=== PATIENT | female | born 1950 | race Caucasian/White ===

== ENCOUNTER 2020-05-05 13:19 | Inpatient (IN) ==
[2020-05-05] MEDS ORDERED: Acetaminophen IV 1,000 MG/100 ML INFUS..BTL IVPB ONE (13:21)
[2020-05-05] MEDS ORDERED: Gabapentin 300 MG CAPSULE PO ONE (13:21)
[2020-05-05] MEDS ORDERED: Famotidine 20 MG/2 ML VIAL IVP ONE (13:21)
[2020-05-05] MEDS ORDERED: Lidocaine/EPI 1:100k 1% 20 ML VIAL ONE (13:47)
[2020-05-05] MEDS ORDERED: Lidocaine -MPF 2% 2 ML VIAL ONE (13:57)
[2020-05-05] MEDS ORDERED: Dexamethasone 4 MG/ML VIAL ONE (13:57)
[2020-05-05] MEDS ORDERED: Ondansetron 4 MG/2 ML VIAL ONE (13:57)
[2020-05-05] MEDS ORDERED: *HR* Succinylcholine 200 MG/10 ML VIAL IVP ONE (13:57)
[2020-05-05] MEDS ORDERED: *HR* Rocuronium Bromide 50 MG/5 ML VIAL ONE ×2 (13:57→16:16)
[2020-05-05] MEDS ORDERED: *HR* FentaNYL (PF) 100 MCG/2 ML VIAL ONE (13:58)
[2020-05-05] MEDS ORDERED: *HR* HYDROMORPHONE 2 MG/ML VIAL ONE (13:58)
[2020-05-05] MEDS ORDERED: *HR* HYDROmorphone PF 0.5 MG/0.5 ML SYRINGE IVP PRN (14:05)
[2020-05-05] MEDS ORDERED: Ondansetron 4 MG/2 ML VIAL IVP ONE (14:05)
[2020-05-05] MEDS ORDERED: *HR* OxyCODONE Immed Rel 5 MG TABLET PO PRN (14:05)
[2020-05-05] MEDS ORDERED: Ketorolac 15 MG/ML VIAL IVP ONE (14:05)
[2020-05-05] MEDS ORDERED: *HR* Promethazine 25 MG/ML VIAL IVP PRN (14:05)
[2020-05-05] MEDS ORDERED: *HR* Metoprolol 5 MG/5 ML VIAL IVP PRN (14:05)
[2020-05-05] MEDS ORDERED: Albuterol 2.5 MG/3 ML NEBULIZER IH PRN (14:05)
[2020-05-05 14:17] LABS: Hematocrit 31.3 % (35.3-44.9); Hemoglobin 9.5 g/dL (11.5-15.4)
[2020-05-05] MEDS ORDERED: *HR* EPINEPHrine 30 MG/30 ML MDV ONE (14:17)
[2020-05-05] MEDS ORDERED: CeFAZolin Syr 2,000MG/20 ML 2,000 MG/20 ML SYRINGE IVPB ONE ×2 (14:19→14:42)
[2020-05-05] MEDS ORDERED: Ringers Solution, Lactated 1,000 ML IVC SCH (14:30)
[2020-05-05] MEDS ORDERED: *HR* PHENYLEPHRINE 1,000 MCG/10 ML SYRINGE IVP ONE (15:23)
[2020-05-05] MEDS ORDERED: *HR* Heparin 5,000 UNIT/ML VIAL ONE (15:45)
[2020-05-05] MEDS ORDERED: Ketorolac 30 MG/ML VIAL ONE (15:49)
[2020-05-05] MEDS ORDERED: Loratadine 10 MG TABLET PO PRN (19:53)
[2020-05-05] MEDS ORDERED: 0.9 % Sodium Chloride 1,000 ML IVC SCH (19:53)
[2020-05-05] MEDS ORDERED: Ondansetron 4 MG/2 ML VIAL IVP PRN (19:53)
[2020-05-05] MEDS ORDERED: Naloxone 0.4 MG/ML INJ IVP PRN (19:53)
[2020-05-05] MEDS: Ipratropium/Albuterol Neb 3 ML IH SCH (20:23)
[2020-05-05] MEDS: Famotidine 20 MG TABLET PO SCH (20:40)
[2020-05-05] MEDS: *HR* Heparin 5,000 UNIT/ML VIAL SQ SCH (20:40)
[2020-05-05] MEDS: Gabapentin 300 MG CAPSULE PO SCH (20:40)
[2020-05-05] MEDS: Sennosides/Docusate Sodium TABLET PO SCH (20:40)
[2020-05-05] MEDS: Ketorolac 15 MG/ML VIAL IVP SCH (23:38)
[2020-05-06] MEDS: Ipratropium/Albuterol Neb 3 ML IH SCH ×7 (00:04→23:53)
[2020-05-06 05:18] LABS: Hematocrit 29.5 % (35.3-44.9); Hemoglobin 8.9 g/dL (11.5-15.4); Mean Corpuscular HGB Conc 30.2 g/dL (31.6-35.5); Mean Corpuscular Hemoglobin 27.4 pg (28.0-33.3); Mean Corpuscular Volume 90.8 fL (83.0-100.0); Mean Platelet Volume 8.5 fL (9.4-12.4); Platelet Count 523 K/mcL (140-400); Red Blood Count 3.25 M/mcL (3.82-4.97); Red Cell Distribution Width 15.3 % (11.5-14.5)
[2020-05-06 05:38] LABS: % Iron Saturation 6 % (15-50); BUN/Creatinine Ratio 28 (6-26); Blood Urea Nitrogen 15 mg/dL (8-23); Calcium 8.2 mg/dL (8.6-10.3); Carbon Dioxide 23 mEq/L (23-29); Chloride 105 mEq/L (98-107); Glucose 128 mg/dL (70-105); Iron 27 mcg/dL (50-170); Osmolality,Calculated 282 (280-300); Potassium 4.2 mEq/L (3.5-5.1); Sodium 135 mEq/L (136-145); Transferrin 302 mg/dL (203-362); eGFR For African Americans > 60 (> 60); eGFR For Non-African Americans > 60 (> 60)
[2020-05-06] MEDS: *HR* Heparin 5,000 UNIT/ML VIAL SQ SCH ×3 (05:48→19:35)
[2020-05-06] MEDS: Ketorolac 15 MG/ML VIAL IVP SCH ×4 (05:48→23:28)
[2020-05-06] MEDS: Aspirin Enteric Coated 81 MG Tablet PO SCH (07:32)
[2020-05-06] MEDS: Famotidine 20 MG TABLET PO SCH ×2 (07:33→19:35)
[2020-05-06] MEDS: Gabapentin 300 MG CAPSULE PO SCH ×3 (07:33→19:35)
[2020-05-06] MEDS: Sennosides/Docusate Sodium TABLET PO SCH ×2 (07:35→19:35)
[2020-05-06] MEDS: Lisinopril-HCTZ 20-12.5mg TABLET PO SCH (07:44)
[2020-05-06] MEDS: *HR* HYDROcodone/Acet 5/325 mg TABLET PO PRN ×3 (08:17→19:35)
[2020-05-06] MEDS ORDERED: Folic Acid 1 MG in 0.9 % Sodium Chloride 50 ML IVPB ONE (08:20)
[2020-05-06] MEDS ORDERED: Thiamine (B-1) 100 MG in 0.9 % Sodium Chloride 50 ML IVPB ONE (08:20)
[2020-05-06] MEDS ORDERED: Iron Sucrose Complex 400 MG in 0.9 % Sodium Chloride 250 ML IVPB ONE (08:20)
[2020-05-07] MEDS: Ipratropium/Albuterol Neb 3 ML IH SCH ×6 (03:29→23:24)
[2020-05-07] MEDS: Ketorolac 15 MG/ML VIAL IVP SCH ×4 (05:42→23:27)
[2020-05-07] MEDS: *HR* Heparin 5,000 UNIT/ML VIAL SQ SCH ×3 (05:42→20:40)
[2020-05-07 08:08] LABS: BUN/Creatinine Ratio 25 (6-26); Blood Urea Nitrogen 12 mg/dL (8-23); Calcium 8.4 mg/dL (8.6-10.3); Carbon Dioxide 25 mEq/L (23-29); Chloride 101 mEq/L (98-107); Glucose 97 mg/dL (70-105); Magnesium 2.3 mg/dL (1.6-2.6); Osmolality,Calculated 274 (280-300); Potassium 3.9 mEq/L (3.5-5.1); Sodium 132 mEq/L (136-145); eGFR For African Americans > 60 (> 60); eGFR For Non-African Americans > 60 (> 60)
[2020-05-07 08:25] LABS: Hemoglobin 8.6 g/dL (11.5-15.4); Mean Corpuscular HGB Conc 29.7 g/dL (31.6-35.5); Mean Corpuscular Hemoglobin 27.2 pg (28.0-33.3); Mean Corpuscular Volume 91.8 fL (83.0-100.0); Mean Platelet Volume 8.6 fL (9.4-12.4); Platelet Count 557 K/mcL (140-400); Red Blood Count 3.16 M/mcL (3.82-4.97); Red Cell Distribution Width 15.5 % (11.5-14.5); White Blood Count 7.5 K/mcL (4.3-11.1)
[2020-05-07] MEDS: Sennosides/Docusate Sodium TABLET PO SCH ×2 (08:56→20:40)
[2020-05-07] MEDS: Lisinopril-HCTZ 20-12.5mg TABLET PO SCH (08:56)
[2020-05-07] MEDS: Aspirin Enteric Coated 81 MG Tablet PO SCH (08:57)
[2020-05-07] MEDS: Gabapentin 300 MG CAPSULE PO SCH ×3 (08:57→20:40)
[2020-05-07] MEDS: Famotidine 20 MG TABLET PO SCH ×2 (08:57→20:39)
[2020-05-07] MEDS: *HR* HYDROcodone/Acet 5/325 mg TABLET PO PRN ×2 (09:00→20:41)
[2020-05-08] MEDS: Ipratropium/Albuterol Neb 3 ML IH SCH ×5 (03:46→20:08)
[2020-05-08] MEDS: Ketorolac 15 MG/ML VIAL IVP SCH ×3 (05:49→21:31)
[2020-05-08] MEDS: *HR* Heparin 5,000 UNIT/ML VIAL SQ SCH ×3 (05:50→21:30)
[2020-05-08] MEDS: Lisinopril-HCTZ 20-12.5mg TABLET PO SCH (08:37)
[2020-05-08] MEDS: Famotidine 20 MG TABLET PO SCH ×2 (08:37→21:29)
[2020-05-08] MEDS: Aspirin Enteric Coated 81 MG Tablet PO SCH (08:37)
[2020-05-08] MEDS: Gabapentin 300 MG CAPSULE PO SCH ×3 (08:37→21:29)
[2020-05-08] MEDS: Sennosides/Docusate Sodium TABLET PO SCH ×2 (08:37→21:29)
[2020-05-08] MEDS: *HR* HYDROcodone/Acet 5/325 mg TABLET PO PRN (08:37)
[2020-05-09] MEDS: Ipratropium/Albuterol Neb 3 ML IH SCH ×7 (00:03→23:24)
[2020-05-09] MEDS: Ketorolac 15 MG/ML VIAL IVP SCH ×4 (00:41→17:10)
[2020-05-09] MEDS: *HR* Heparin 5,000 UNIT/ML VIAL SQ SCH ×2 (06:16→13:17)
[2020-05-09] MEDS ORDERED: Iron Sucrose Complex 400 MG in 0.9 % Sodium Chloride 250 ML IVPB ONE (08:08)
[2020-05-09] MEDS: Famotidine 20 MG TABLET PO SCH ×2 (08:30→19:39)
[2020-05-09] MEDS: Gabapentin 300 MG CAPSULE PO SCH ×3 (08:30→19:39)
[2020-05-09] MEDS: amLODIPine 5 MG TABLET PO SCH (08:30)
[2020-05-09] MEDS: Lisinopril-HCTZ 20-12.5mg TABLET PO SCH (08:30)
[2020-05-09] MEDS: Sennosides/Docusate Sodium TABLET PO SCH ×2 (08:30→19:39)
[2020-05-09] MEDS: Aspirin Enteric Coated 81 MG Tablet PO SCH (08:31)
[2020-05-09] MEDS: *HR* HYDROcodone/Acet 5/325 mg TABLET PO PRN (08:32)
[2020-05-10] MEDS: Ketorolac 15 MG/ML VIAL IVP SCH (00:27)
[2020-05-10] MEDS: *HR* Heparin 5,000 UNIT/ML VIAL SQ SCH ×4 (00:28→21:13)
[2020-05-10] MEDS: Ipratropium/Albuterol Neb 3 ML IH SCH ×6 (03:36→23:38)
[2020-05-10 04:24] LABS: Hematocrit 34.2 % (35.3-44.9); Mean Corpuscular HGB Conc 29.8 g/dL (31.6-35.5); Mean Corpuscular Hemoglobin 26.5 pg (28.0-33.3); Mean Corpuscular Volume 88.8 fL (83.0-100.0); Mean Platelet Volume 8.5 fL (9.4-12.4); Platelet Count 668 K/mcL (140-400); Red Blood Count 3.85 M/mcL (3.82-4.97); Red Cell Distribution Width 15.9 % (11.5-14.5)
[2020-05-10 04:34] LABS: Hemoglobin 10.2 g/dL (11.5-15.4)
[2020-05-10 04:42] LABS: BUN/Creatinine Ratio 41 (6-26); Blood Urea Nitrogen 18 mg/dL (8-23); Calcium 8.7 mg/dL (8.6-10.3); Carbon Dioxide 23 mEq/L (23-29); Chloride 102 mEq/L (98-107); Glucose 96 mg/dL (70-105); Osmolality,Calculated 276 (280-300); Phosphorous 4.1 mg/dL (2.7-4.5); Potassium 4.4 mEq/L (3.5-5.1); Sodium 132 mEq/L (136-145); eGFR For African Americans > 60 (> 60); eGFR For Non-African Americans > 60 (> 60)
[2020-05-10] MEDS: Sennosides/Docusate Sodium TABLET PO SCH ×2 (08:07→21:13)
[2020-05-10] MEDS: amLODIPine 5 MG TABLET PO SCH (08:07)
[2020-05-10] MEDS: Famotidine 20 MG TABLET PO SCH ×2 (08:07→21:13)
[2020-05-10] MEDS: Gabapentin 300 MG CAPSULE PO SCH ×3 (08:07→21:13)
[2020-05-10] MEDS: Aspirin Enteric Coated 81 MG Tablet PO SCH (08:07)
[2020-05-10] MEDS: Lisinopril-HCTZ 20-12.5mg TABLET PO SCH (08:08)
[2020-05-10] MEDS: *HR* HYDROcodone/Acet 5/325 mg TABLET PO PRN ×2 (08:11→21:13)
[2020-05-10] MEDS: polyethylene glycoL 3350 17 GM POWD.PACK PO SCH (14:21)
[2020-05-11] MEDS: Ipratropium/Albuterol Neb 3 ML IH SCH ×6 (04:04→23:07)
[2020-05-11] MEDS: *HR* Heparin 5,000 UNIT/ML VIAL SQ SCH ×3 (06:00→22:39)
[2020-05-11] MEDS: Famotidine 20 MG TABLET PO SCH ×2 (07:57→19:54)
[2020-05-11] MEDS: polyethylene glycoL 3350 17 GM POWD.PACK PO SCH (07:57)
[2020-05-11] MEDS: Aspirin Enteric Coated 81 MG Tablet PO SCH (07:57)
[2020-05-11] MEDS: Sennosides/Docusate Sodium TABLET PO SCH ×2 (07:57→19:55)
[2020-05-11] MEDS: Gabapentin 300 MG CAPSULE PO SCH ×3 (07:57→19:54)
[2020-05-11] MEDS: Lisinopril-HCTZ 20-12.5mg TABLET PO SCH (07:57)
[2020-05-11] MEDS: *HR* HYDROcodone/Acet 5/325 mg TABLET PO PRN ×2 (14:05→19:55)
[2020-05-12] MEDS: Ipratropium/Albuterol Neb 3 ML IH SCH ×6 (03:18→22:52)
[2020-05-12] MEDS: *HR* Heparin 5,000 UNIT/ML VIAL SQ SCH ×3 (06:02→20:22)
[2020-05-12] MEDS: Famotidine 20 MG TABLET PO SCH ×2 (08:19→20:23)
[2020-05-12] MEDS: Aspirin Enteric Coated 81 MG Tablet PO SCH (08:19)
[2020-05-12] MEDS: *HR* HYDROcodone/Acet 5/325 mg TABLET PO PRN ×2 (08:19→16:45)
[2020-05-12] MEDS: Lisinopril-HCTZ 20-12.5mg TABLET PO SCH (08:20)
[2020-05-12] MEDS: Sennosides/Docusate Sodium TABLET PO SCH ×2 (08:20→20:23)
[2020-05-12] MEDS: Gabapentin 300 MG CAPSULE PO SCH ×3 (08:20→20:23)
[2020-05-12] MEDS: polyethylene glycoL 3350 17 GM POWD.PACK PO SCH (08:20)
[2020-05-12] MEDS: Bisacodyl 10 MG RECTAL SUPPOSITORY RC SCH (12:17)
[2020-05-13] MEDS: Ipratropium/Albuterol Neb 3 ML IH SCH ×3 (03:29→11:42)
[2020-05-13] MEDS: *HR* Heparin 5,000 UNIT/ML VIAL SQ SCH (06:40)
[2020-05-13 07:03] VITALS: BP 111/67
[2020-05-13] MEDS: Bisacodyl 10 MG RECTAL SUPPOSITORY RC SCH (08:04)
[2020-05-13] MEDS: *HR* HYDROcodone/Acet 5/325 mg TABLET PO PRN (08:06)
[2020-05-13] MEDS: Gabapentin 300 MG CAPSULE PO SCH (08:06)
[2020-05-13] MEDS: Sennosides/Docusate Sodium TABLET PO SCH (08:06)
[2020-05-13] MEDS: Famotidine 20 MG TABLET PO SCH (08:06)
[2020-05-13] MEDS: Aspirin Enteric Coated 81 MG Tablet PO SCH (08:06)
[2020-05-13] MEDS: polyethylene glycoL 3350 17 GM POWD.PACK PO SCH (08:06)
[2020-05-13] MEDS: Lisinopril-HCTZ 20-12.5mg TABLET PO SCH (08:06)
== END 2020-05-13 12:01 | disposition home or self-care (01) | DRG 164 ==
LOC: SAMDAY 13:19 → 2NNU 19:36
PROVIDERS: ADMIT Thoracic Surgery (Cardiothoracic Vascular Surgery); ATTEND Thoracic Surgery (Cardiothoracic Vascular Surgery)